=== PATIENT | female | born 1935 | race Caucasian/White ===

== ENCOUNTER 2017-03-01 14:29 | Emergency (ER) | payer MEDICARE, BC ==
[2017-03-01 14:41] VITALS: BP 113/62
[2017-03-01] MEDS ORDERED: ACETAMINOPHEN 325 MG TABLET PO ONE (15:25)
[2017-03-01] MEDS ORDERED: SILVER SULFADIAZINE 1% CREAM 25 GM TP ONE (15:25)
[2017-03-01] MEDS ORDERED: TRAMADOL HCL 50 MG TABLET PO ONE (15:25)
--- NOTE | 2017-03-01 16:24 | ER Document Report ---
HPI - HPI Patient complains to provider of: hot soup splashed on left hand Onset: Other - 2 hours prior to arrival Onset/Duration: Sudden Quality of pain: Burning Pain Level: 3 Context: 81 yo female was carrying hot soup which splashed from the bowl onto left hand base of fingers to over the MCP's. Put neosporin on it, still dutton. Has ultram and tylenol for pain Exacerbated by: Denies Relieved by: Denies - ROS ROS below otherwise negative: Yes Systems Reviewed and Negative: Yes All other systems reviewed and negative - REPRODUCTIVE Reproductive: DENIES: : - DERM Skin Color: Normal Past Medical History - General Information source: Patient - Social History Smoking Status: Never Smoker Chew tobacco use (# tins/day): No Frequency of alcohol use: None Drug Abuse: None Lives with: Spouse/Significant other Family History: Reviewed & Not Pertinent - Past Medical History Cardiac Medical History: Reports: Hx Hypertension Renal/ Medical History: Denies: Hx Peritoneal Dialysis Musculoskeltal Medical History: Reports Hx Arthritis Psychiatric Medical History: Reports: Hx Depression Past Surgical History: Reports: Hx Hysterectomy - Immunizations Hx Diphtheria, Pertussis, Tetanus Vaccination: No Hx Pneumococcal Vaccination: 04/11/13 Vertical Provider Document - CONSTITUTIONAL Agree With Documented VS: Yes Exam Limitations: No Limitations General Appearance: No Apparent Distress - INFECTION CONTROL TRAVEL OUTSIDE OF THE [place] IN LAST 30 DAYS: No - HEENT HEENT: Normocephalic - NECK Neck: Supple - RESPIRATORY O2 Sat by Pulse Oximetry: 97 - MUSCULOSKELETAL/EXTREMETIES Musculoskeletal/Extremeties: MAEW, FROM, Non-Tender - NEURO Level of Consciousness: Awake, Alert Motor/Sensory: No Motor Deficit, No Sensory Deficit - DERM Notes: she pointed to area that was burned on left hand and there is no erythema, blisters or skin disruption Course - Vital Signs Vital signs: Temp Pulse Resp BP Pulse Ox 98.2 F 76 18 113/62 97 03/01/17 14:39 03/01/17 14:39 03/01/17 14:39 03/01/17 14:39 03/01/17 14:39 Discharge - Discharge Clinical Impression: minimal First degree hand burn Condition: Good Disposition: HOME, SELF-CARE Instructions: Acetaminophen, [place] ([facility]), Sulfa Medications ([facility]), Ultram ([facility]) Additional Instructions: Keep your hand clean with soap and water daily Silvadene cream and dressing this week Return to the emergency room if any signs of infection Please complete the patient satisfaction survey if you get one, and return it.. If you do not receive a survey, then you can go to the [facility] website, [email or web address] and place your comments about your very good care. Thank you very much. It was a pleasure being your medical provider today. Referrals: MARIE WHITE MD [Primary Care Provider] - 03/03/17
== END 2017-03-01 16:48 | disposition home or self-care (01) ==
LOC: ER 14:29
DX: T23.102A Burn of first degree of left hand, unspecified site, initial encounter (principal); X12.XXXA Contact with other hot fluids, initial encounter
CPT/HCPCS: 99283; A9270 ×3

== ENCOUNTER → 2017-06-23 | Outpatient (CLI) | payer MEDICARE, BC ==
--- NOTE | 2017-06-23 11:05 | RADIOLOGY REPORT (SQ) ---
EXAM DESCRIPTION: CHEST PA/LATERAL COMPLETED DATE/TIME: 06/23/2017 9:55 am REASON FOR STUDY: OTHER ABNORMALITIES OF BREATHING,DYSPNEA, UNSPECIF COMPARISON: 11/12/2013 EXAM PARAMETERS: NUMBER OF VIEWS: two views TECHNIQUE: Digital Frontal and Lateral radiographic views of the chest acquired. RADIATION DOSE: NA LIMITATIONS: none FINDINGS: LUNGS AND PLEURA: No opacities, masses or pneumothorax. No pleural effusion. MEDIASTINUM AND HILAR STRUCTURES: No masses or contour abnormalities. HEART AND VASCULAR STRUCTURES: Heart normal size. No evidence for failure. BONES: No acute findings. HARDWARE: None in the chest. OTHER: No other significant finding. IMPRESSION: NO SIGNIFICANT RADIOGRAPHIC FINDING IN THE CHEST. TECHNICAL DOCUMENTATION: JOB ID: [id number] [employer]- All Rights Reserved
== END ==
LOC: OD 09:29
PROVIDERS: ATTEND Internal Medicine Pulmonary Disease
DX: R06.00 Dyspnea, unspecified (principal); R06.89 Other abnormalities of breathing
CPT/HCPCS: 71046

== ENCOUNTER → 2018-04-01 | Outpatient (CLI) | payer MEDICARE, BC ==
[2018-04-01 09:32] LABS: ABSOLUTE BASOPHILS # (AUTO) 0.1 10^3/uL (0.0-0.2); ABSOLUTE EOSINOPHILS # (AUTO) 0.1 10^3/uL (0.0-0.6); ABSOLUTE LYMPHOCYTES (AUTO) 1.5 10^3/uL (0.5-4.7); ABSOLUTE MONOCYTES (AUTO) 0.3 10^3/uL (0.1-1.4); ABSOLUTE NEUT (AUTO) 3.9 10^3/uL (1.7-8.2); BASOPHILS % (AUTO) 1.3 % (0-2); EOSINOPHILS % (AUTO) 2.3 % (0-6); HEMATOCRIT 37.3 % (36.0-47.0); HEMOGLOBIN 12.6 g/dL (12.0-15.5); LYMPHOCYTES % (AUTO) 25.4 % (13-45); MEAN CORPUSCULAR HEMOGLOBIN 30.8 pg (27.0-33.4); MEAN CORPUSCULAR HGB CONC 33.8 g/dL (32.0-36.0); MEAN CORPUSCULAR VOLUME 91 fl (80-97); MONOCYTES % (AUTO) 4.9 % (3-13); PLATELET COUNT 304 10^3/uL (150-450); RED CELL DISTRIBUTION WIDTH 13.5 % (11.5-14.0); SEGMENTED NEUTROPHILS % (AUTO) 66.1 % (42-78); TOTAL CELLS COUNTED % (AUTO) 100 %; WHITE BLOOD COUNT 5.9 10^3/uL (4.0-10.5)
[2018-04-01 09:56] LABS: ALANINE AMINOTRANSFERASE 18 U/L (9-52); ALBUMIN 4.3 g/dL (3.5-5.0); ALKALINE PHOSPHATASE 69 U/L (38-126); ANION GAP 9 (5-19); ASPARTATE AMINO TRANSFERASE 19 U/L (14-36); BILIRUBIN,DIRECT 0.2 mg/dL (0.0-0.4); BILIRUBIN,TOTAL 0.3 mg/dL (0.2-1.3); BLOOD UREA NITROGEN 44 mg/dL (7-20); CALCIUM 9.4 mg/dL (8.4-10.2); CARBON DIOXIDE 26 mmol/L (22-30); CHLORIDE 108 mmol/L (98-107); GLUCOSE 98 mg/dL (75-110); POTASSIUM 4.4 mmol/L (3.6-5.0); SODIUM 142.9 mmol/L (137-145); TOTAL PROTEIN 7.5 g/dL (6.3-8.2)
== END ==
LOC: LAB 08:55
PROVIDERS: ATTEND Internal Medicine Cardiovascular Disease
DX: I25.119 Atherosclerotic heart disease of native coronary artery with unspecified angina pectoris (principal)
CPT/HCPCS: 36415; 80053; 85025

== ENCOUNTER 2018-05-14 06:23 | Observation (INO) | payer MEDICARE, BC ==
--- NOTE | 2018-05-14 06:53 | RADIOLOGY REPORT (SQ) ---
EXAM DESCRIPTION: XR CHEST 1 VIEW COMPLETED DATE/TME: 05/14/2018 06:29 CLINICAL HISTORY: 82 years Female, chest pain COMPARISON:06/23/2017 NUMBER OF VIEWS/TECHNIQUE: 1/AP FINDINGS: Adequate lung volume, clear parenchyma, normal cardiac silhouette, and intact bony thorax. IMPRESSION: No acute cardiopulmonary findings.
[2018-05-14 07:00] LABS: ABSOLUTE BASOPHILS # (AUTO) 0.1 10^3/uL (0.0-0.2); ABSOLUTE EOSINOPHILS # (AUTO) 0.1 10^3/uL (0.0-0.6); ABSOLUTE LYMPHOCYTES (AUTO) 1.3 10^3/uL (0.5-4.7); ABSOLUTE MONOCYTES (AUTO) 0.3 10^3/uL (0.1-1.4); ABSOLUTE NEUT (AUTO) 2.9 10^3/uL (1.7-8.2); BASOPHILS % (AUTO) 1.1 % (0-2); EOSINOPHILS % (AUTO) 2.3 % (0-6); HEMOGLOBIN 11.7 g/dL (12.0-15.5); LYMPHOCYTES % (AUTO) 28.3 % (13-45); MEAN CORPUSCULAR HEMOGLOBIN 30.5 pg (27.0-33.4); MEAN CORPUSCULAR HGB CONC 33.4 g/dL (32.0-36.0); MEAN CORPUSCULAR VOLUME 91 fl (80-97); MONOCYTES % (AUTO) 6.2 % (3-13); PLATELET COUNT 285 10^3/uL (150-450); RED BLOOD COUNT 3.83 10^6/uL (3.72-5.28); RED CELL DISTRIBUTION WIDTH 13.7 % (11.5-14.0); SEGMENTED NEUTROPHILS % (AUTO) 62.1 % (42-78); TOTAL CELLS COUNTED % (AUTO) 100 %; WHITE BLOOD COUNT 4.7 10^3/uL (4.0-10.5)
[2018-05-14] MEDS ORDERED: ASPIRIN 81 MG TABLET, CHEWABLE PO ONE (07:14)
--- NOTE | 2018-05-14 07:15 | ER Document Report ---
ED General - General Chief Complaint: Chest Pressure Stated Complaint: CHEST PAIN Time Seen by Provider: 05/14/18 06:29 Notes: Patient is a 82-year-old female with CAD that presents to the emergency department for chief complaint of chest pain. The patient reports that the pain started around 3 or 4 AM this morning and is subsiding. The currently rate the pain as 2 out of 10, and described as tightness and pressure that is substernal. Denies any other associated symptoms. Denies any shortness of breath, diaphoresis, nausea or vomiting. Their risk factors for heart disease include CAD and prior stenting, hypertension, hyperlipidemia. She was given nitroglycerin spray by EMS which did seem to alleviate her chest pain. She reports having recent heart cath in January 2018, is currently taking aspirin and Brilinta, denies missing any doses. Past Medical History: CAD, hypertension, hyperlipidemia Past Surgical History: PCI with stenting Social History: Denies tobacco, alcohol or drug use. Family History: Reviewed and noncontributory for presenting illness Allergies: Reviewed, see documented allergy list. REVIEW OF SYSTEMS: Other than noted above, the 12 point review of systems was reviewed with the patient and were negative, all pertinent findings are included in the HPI. PHYSICAL EXAMINATION: Vital signs reviewed, nursing noted reviewed. GENERAL: Elderly, well-appearing, well-nourished and in no acute distress. HEAD: Atraumatic, normocephalic. EYES: Eyes appear normal, extraocular movements intact, sclera anicteric, conjunctiva are normal. ENT: nares patent, oropharynx clear without exudates. Moist mucous membranes. NECK: Normal range of motion, supple without lymphadenopathy LUNGS: Breath sounds clear to auscultation bilaterally and equal. No wheezes rales or rhonchi. HEART: Regular rate and rhythm without murmurs ABDOMEN: Soft, nontender, normoactive bowel sounds. No rebound, guarding, or rigidity. No masses appreciated. EXTREMITIES: Nontender, good range of motion, no pitting or edema. NEUROLOGICAL: No focal neurological deficits. Moves all extremities spontaneously Motor and sensory grossly intact on exam. PSYCH: Normal mood, normal affect. SKIN: Warm, Dry, normal turgor, no rashes or lesions noted on exposed skin TRAVEL OUTSIDE OF THE [place] IN LAST 30 DAYS: No - Related Data Allergies/Adverse Reactions: prochlorperazine edisylate [From Compazine] Allergy (Severe, Verified 05/14/18 09:01) facial spasms prochlorperazine maleate [From Compazine] Allergy (Severe, Verified 05/14/18 09:01) facial spasms codeine [Codeine] Allergy (Intermediate, Verified 05/14/18 09:01) blistering rash levofloxacin [From Levaquin] Allergy (Intermediate, Verified 05/14/18 09:01) n/v I&H Allergy (Mild, Uncoded 05/14/18 09:01) rash meclomin Allergy (Mild, Uncoded 05/14/18 09:01) Diarrhea Past Medical History - Social History Smoking Status: Never Smoker Frequency of alcohol use: None Drug Abuse: None Family History: Reviewed & Not Pertinent Patient has suicidal ideation: No Patient has homicidal ideation: No - Past Medical History Cardiac Medical History: Reports: Hx Hypertension Denies: Hx Coronary Artery Disease, Hx Heart Attack Pulmonary Medical History: Denies: Hx Asthma, Hx Bronchitis, Hx COPD, Hx Pneumonia Neurological Medical History: Denies: Hx Cerebrovascular Accident, Hx Seizures Renal/ Medical History: Denies: Hx Peritoneal Dialysis GI Medical History: Denies: Hx Hepatitis, Hx Hiatal Hernia, Hx Ulcer Musculoskeletal Medical History: Reports Hx Arthritis Psychiatric Medical History: Reports: Hx Depression Infectious Medical History: Denies: Hx Hepatitis Past Surgical History: Reports: Hx Cardiac Surgery - x2 stent 12/27, Hx Hysterectomy. Denies: Hx Mastectomy, Hx Open Heart Surgery, Hx Pacemaker - Immunizations Hx Diphtheria, Pertussis, Tetanus Vaccination: No Hx Pneumococcal Vaccination: 04/11/13 Physical Exam - Vital signs Vitals: Pulse Ox 98 05/14/18 06:29 Course - Re-evaluation Re-evalutation: Patient seen and examined vital signs reviewed. Laboratory data and imaging were ordered as appropriate for the patient's presenting symptoms and complaint, with consideration of any critical or life threatening conditions that may be associated with their obtained history and exam as noted above. Patient was treated with nitro by EMS which did seem to help her chest pain. Results were reviewed when available and demonstrated negative troponin, with nonischemic EKG, the rest of her blood work was unremarkable The patient was re-evaluated and was stable Evaluation was most consistent with chest pain, nonspecific, possibly related to angina, given patient history, recommended observation for serial troponin testing, discussed this with the hospitalist team, given that the patient was high risk, and her story and her history of CAD with stenting. Results were discussed with the patient at this point after careful con sideration I feel that that patient should be admitted to the hospital. This was discussed with the patient that it is in the best interest for their care to be admitted for further evaluation and management. Patient agreed with this plan of care. A call was placed to the admitted physician, Payton Daniel CNP who graciously accepted the patient onto their service. *Note is created using voice recognition software and may contain spelling, syntax or grammatical errors. Laboratory 05/14/18 05/14/18 05/14/18 06:45 06:45 06:45 WBC 4.7 RBC 3.83 Hgb 11.7 L Hct 35.0 L MCV 91 MCH 30.5 MCHC 33.4 RDW 13.7 Plt Count 285 Seg Neutrophils % 62.1 Lymphocytes % 28.3 Monocytes % 6.2 Eosinophils % 2.3 Basophils % 1.1 Absolute Neutrophils 2.9 Absolute Lymphocytes 1.3 Absolute Monocytes 0.3 Absolute Eosinophils 0.1 Absolute Basophils 0.1 Sodium 138.4 Potassium 4.8 Chloride 108 H Carbon Dioxide 23 Anion Gap 7 BUN 31 H Creatinine 0.82 Est GFR ( Amer) > 60 Est GFR (Non-Af Amer) > 60 Glucose 100 Calcium 8.9 Total Bilirubin 0.4 Direct Bilirubin 0.2 Neonat Total Bilirubin Not Reportable Neonat Direct Bilirubin Not Reportable Neonat Indirect Bili Not Reportable AST 20 ALT 18 Alkaline Phosphatase 60 Troponin I < 0.012 Total Protein 6.4 Albumin 3.5 Chest X-Ray 05/14/18 06:29 IMPRESSION: No acute cardiopulmonary findings. - Vital Signs Vital signs: Temp Pulse Resp BP Pulse Ox 98.3 F 14 102/58 L 98 05/14/18 15:12 05/14/18 14:01 05/14/18 14:57 05/14/18 14:01 - Laboratory Result Diagrams: 05/14/18 06:45 05/14/18 06:45 Laboratory results interpreted by me: 05/14/18 05/14/18 06:45 06:45 Hgb 11.7 L Hct 35.0 L Chloride 108 H BUN 31 H - EKG Interpretation by Me Additional EKG results interpreted by me: EKG demonstrates sinus rhythm with a ventricular rate of 68 bpm, normal axis, normal intervals, no evidence of acute ischemia on this EKG, this is compared with prior EKG from 11/14/2013, without significant change. Discharge - Discharge Clinical Impression: Chest pain Qualifiers: Chest pain type: unspecified Qualified Code(s): R07.9 - Chest pain, unspecified Condition: Stable Disposition: ADMITTED OBSERVATION Admitting Provider: Jose Daniel [facility] Unit Admitted: Telemetry
[2018-05-14 07:28] LABS: ALANINE AMINOTRANSFERASE 18 U/L (9-52); ALBUMIN 3.5 g/dL (3.5-5.0); ALKALINE PHOSPHATASE 60 U/L (38-126); ANION GAP 7 (5-19); ASPARTATE AMINO TRANSFERASE 20 U/L (14-36); BILIRUBIN,DIRECT 0.2 mg/dL (0.0-0.4); BILIRUBIN,TOTAL 0.4 mg/dL (0.2-1.3); BLOOD UREA NITROGEN 31 mg/dL (7-20); CALCIUM 8.9 mg/dL (8.4-10.2); CARBON DIOXIDE 23 mmol/L (22-30); CHLORIDE 108 mmol/L (98-107); GLUCOSE 100 mg/dL (75-110); POTASSIUM 4.8 mmol/L (3.6-5.0); SODIUM 138.4 mmol/L (137-145); TOTAL PROTEIN 6.4 g/dL (6.3-8.2)
[2018-05-14] MEDS ORDERED: TRAMADOL HCL 50 MG TABLET PO PRN (09:12)
[2018-05-14] MEDS ORDERED: NITROGLYCERIN 0.4 MG/TAB 25 TAB/BOTTLE SL PRN (09:13)
[2018-05-14] MEDS ORDERED: MORPHINE SULFATE 10 MG/ML INJ IV PRN (09:13)
[2018-05-14] MEDS ORDERED: ISOSORBIDE MONONITRATE 60 MG TAB.ER.24H PO SCH (10:00)
[2018-05-14] MEDS ORDERED: FAMOTIDINE 20 MG TABLET PO SCH (10:00)
[2018-05-14] MEDS ORDERED: LISINOPRIL 10 MG TABLET PO SCH (10:00)
[2018-05-14] MEDS ORDERED: CLOPIDOGREL BISULFATE 75 MG TABLET PO SCH (10:00)
[2018-05-14] MEDS ORDERED: DOCUSATE SODIUM 100 MG CAPSULE PO SCH (10:00)
[2018-05-14] MEDS ORDERED: METOPROLOL SUCCINATE 25 MG TAB.SR.24H PO SCH (10:00)
[2018-05-14] MEDS ORDERED: ENOXAPARIN SODIUM INJ 80 MG/0.8 ML DISP.SYRIN SUBCUT SCH (10:30)
--- NOTE | 2018-05-14 13:38 | EKG REPORT ---
SEVERITY:- NORMAL ECG - SINUS RHYTHM : Confirmed by: Katja Okeefe MD 14-May-2018 13:36:51
[2018-05-14 14:58] VITALS: BP 98/45
--- NOTE | 2018-05-14 16:25 | H&P/Discharge Summary ---
Discharge Summary Admission Date/PCP: 05/14/18 09:06 MARIE WHITE MD Discharge Date: 05/14/18 Resuscitation Status: Full Code Home Medications: Aspirin [Matthew Chewable Aspirin] 81 mg PO DAILY 05/14/18 Atorvastatin Calcium [Lipitor 20 mg Tablet] 20 mg PO QHS 05/14/18 Clopidogrel Bisulfate [Plavix 75 mg Tablet] 75 mg PO DAILY 05/14/18 Lisinopril/Hydrochlorothiazide [Lisinopril-Hctz 20-12.5 mg Tab] 1 each PO DAILY 05/14/18 Metoprolol Succinate [Toprol Xl 25 mg Tab.sr] 12.5 mg PO DAILY 05/14/18 Ranitidine HCl [Zantac] 300 mg PO QHS 05/14/18 Sennosides/Docusate Sodium [Stool Softener-Laxative Tablet] 1 each PO DAILY 05/14/18 Tramadol HCl [Ultram 50 mg Tablet] 50 mg PO Q12 05/14/18 Allergies/Adverse Reactions: prochlorperazine edisylate [From Compazine] Allergy (Severe, Verified 05/14/18 09:01) facial spasms prochlorperazine maleate [From Compazine] Allergy (Severe, Verified 05/14/18 0 9:01) facial spasms codeine [Codeine] Allergy (Intermediate, Verified 05/14/18 09:01) blistering rash levofloxacin [From Levaquin] Allergy (Intermediate, Verified 05/14/18 09:01) n/v I&H Allergy (Mild, Uncoded 05/14/18 09:01) rash meclomin Allergy (Mild, Uncoded 05/14/18 09:01) Diarrhea Discharge Diet: Diabetic Discharge Activity: Activity As Tolerated, Balance Activity w/Rest History of Present Illness Admission Date/PCP: 05/14/18 09:06 MARIE WHITE MD Patient complains of: chest tightness History of Present Illness: NIMISHA MONSIVAIS is a 82 year old female with a past medical history significant for hypertension, COPD, hyperlipidemia, and recent cardiac catheterization 12/27 and follow-up cath 03/29 with multiple stents who presented to the emergency department today with a complaint of chest tightness, without aggravating, alleviating, or associated symptoms. She reports that she called EMS who provid ed her full strength aspirin and 1 sublingual nitroglycerin tablet which immediately abated her discomfort. The patient reports that her cardiac cath in December 2017 was secondary to abnormal testing revealed during preoperative clearance for right hip orthopedic surgery. She had multiple stents placed at that time; a follow-up cardiac catheterization in March 2018 confirmed patent stents without vessel occlusion. Evaluation in the emergency department revealed baseline anemia (hemoglobin 1 1.7), and unremarkable chemistry with a normal troponin, EKG demonstrating normal sinus rhythm, and a benign chest x-ray. The patient was referred to the hospitalist service for admission and chest pain rule out. Received a call from the patient's nurse this afternoon stating that the patient was requesting to be discharged home. She been observed on cardiac telemetry and has remained in normal sinus rhythm without ST segment or T wave changes. The patient second troponin was negative and she is remained chest pain-free. Her operative reports and [facility] obtained and confirmed the patient's report of recent cardiac catheterization, patency of vessels and recently placed stents. The patient was encouraged to remain for additional observation, however, in sisted that she be allowed to be discharged home as she has had no further episodes of discomfort and is confident in her ability to follow-up with Dr. Livingston within the next few weeks. At time of discharge, the patient is asymptomatic, and in stable condition. She is provided a prescription for nitroglycerin sublingual tabs and educated on appropriate use. She is encouraged to follow-up with her primary care provider within 1 week, to contact Dr. Ovalle's office and to arrange for close follow-up, and to return to the emergency department as necessary for any concerning symptoms. Past Medical History Cardiac Medical History: Reports: Coronary Artery Disease, Hypertension Denies: Myocardial Infarction Pulmonary Medical History: Reports: Chronic Obstructive Pulmonary Disease (COPD) EENT Medical History: Reports: None Neurological Medical History: Denies: Ischemic CVA, Seizures Endocrine Medical History: Reports: None Renal/ Medical History: Reports: None Malignancy Medical History: Reports: None GI Medical History: Denies: Hepatitis, Hiatal Hernia Musculoskeltal Medical History: Reports: Arthritis Skin Medical History: Reports: None Psychiatric Medical History: Reports: Depression Traumatic Medical History: Reports: None Hematology: Denies: Anemia, Sickle Cell Disease Infectious Medical History: Reports: None Past Surgical History Past Surgical History: Reports: Cardiac Catheterization - 12/27, 03/29, Section, Hysterectomy, Other - Bladder sling Denies: Pacemaker Social History Information Source: Patient Lives with: Family Smoking Status: Never Smoker Frequency of Alcohol Use: None Hx Recreational Drug Use: No Hx Prescription Drug Abuse: No - Advance Directive Resuscitation Status: Full Code Surrogate healthcare decision maker:: The patient's , Shaun Monsivais. Family History Family History: Reviewed & Not Pertinent Parental Family History Reviewed: Yes Children Family History Reviewed: Yes Sibling(s) Family History Reviewed.: Yes Review of Systems Constitutional: ABSENT: chills, fever(s), headache(s), weight gain, weight loss Eyes: ABSENT: visual disturbances Ears: ABSENT: hearing changes Cardiovascular: PRESENT: chest pain. ABSENT: dyspnea on exertion, edema, orthropnea, palpitations Respiratory: ABSENT: cough, hemoptysis Gastrointestinal: ABSENT: abdominal pain, constipation, diarrhea, hematemesis, hematochezia, nausea, vomiting Genitourinary: ABSENT: dysuria, hematuria Musculoskeletal: ABSENT: joint swelling Integumentary: ABSENT: rash, wounds Neurological: ABSENT: abnormal gait, abnormal speech, confusion, dizziness, focal weakness, syncope Psychiatric: ABSENT: anxiety, depression, homidical ideation, suicidal ideation Endocrine: ABSENT: cold intolerance, heat intolerance, polydipsia, polyuria Hematologic/Lymphatic: ABSENT: easy bleeding, easy bruising Physical Exam Vital Signs: Temp Pulse Resp BP Pulse Ox 98.3 F 14 102/58 L 98 05/14/18 15:12 05/14/18 14:01 05/14/18 14:57 05/14/18 14:01 Intake & Output 05/13/18 05/14/18 05/15/18 06:59 06:59 06:59 Weight 70 kg General appearance: PRESENT: no acute distress, well-developed, well-nourished Head exam: PRESENT: atraumatic, normocephalic Eye exam: PRESENT: conjunctiva pink, EOMI, PERRLA. ABSENT: scleral icterus Ear exam: PRESENT: normal external ear exam Mouth exam: PRESENT: moist, tongue midline Neck exam: ABSENT: carotid bruit, JVD, lymphadenopathy, thyromegaly Respiratory exam: PRESENT: clear to auscultation yaakov, symmetrical, unlabored. ABSENT: rales, rhonchi, wheezes Cardiovascular exam: PRESENT: RRR, +S1, +S2. ABSENT: diastolic murmur, rubs, systolic murmur Pulses: PRESENT: normal dorsalis pedis pul Vascular exam: PRESENT: normal capillary refill GI/Abdominal exam: PRESENT: normal bowel sounds, soft. ABSENT: distended, guarding, mass, organolmegaly, rebound, tenderness Rectal exam: PRESENT: deferred Extremities exam: PRESENT: full ROM. ABSENT: calf tenderness, clubbing, pedal edema Neurological exam: PRESENT: alert, awake, oriented to person, oriented to place, oriented to time, oriented to situation, CN II-XII grossly intact. ABSENT: motor sensory deficit Psychiatric exam: PRESENT: appropriate affect, normal mood. ABSENT: homicidal ideation, suicidal ideation Skin exam: PRESENT: dry, intact, warm. ABSENT: cyanosis, rash Results Laboratory Results: 05/14/18 06:45 05/14/18 06:45 05/14/18 05/14/18 06:45 06:45 WBC 4.7 RBC 3.83 Hgb 11.7 L Hct 35.0 L MCV 91 MCH 30.5 MCHC 33.4 RDW 13.7 Plt Count 285 Seg Neutrophils % 62.1 Lymphocytes % 28.3 Monocytes % 6.2 Eosinophils % 2.3 Basophils % 1.1 Absolute Neutrophils 2.9 Absolute Lymphocytes 1.3 Absolute Monocytes 0.3 Absolute Eosinophils 0.1 Absolute Basophils 0.1 Sodium 138.4 Potassium 4.8 Chloride 108 H Carbon Dioxide 23 Anion Gap 7 BUN 31 H Creatinine 0.82 Est GFR ( Amer) > 60 Est GFR (Non-Af Amer) > 60 Glucose 100 Calcium 8.9 Total Bilirubin 0.4 AST 20 ALT 18 Alkaline Phosphatase 60 Total Protein 6.4 Albumin 3.5 05/14/18 05/14/18 06:45 11:27 Troponin I < 0.012 < 0.012 Impressions: Chest X-Ray 05/14/18 06:29 IMPRESSION: No acute cardiopulmonary findings. Qualifiers - * PATIENT BEING DISCHARGED WITH ANY OF THE FOLLOWING DIAGNOSIS: No Assessment & Plan - Time Time Spent: 50 to 70 Minutes Medications reviewed and adjusted accordingly: Yes Anticipated dischagre: Home Within: within 24 hours - Plan Summary Plan Summary: Discharge to home with self care. Follow up with primary care provider within 1 week. Contact ticketer, Dr. Jessep, and follow up as directed. Recommend f/u no later than 4 weeks. Return to the emergency department as needed for concerning symptoms.
[2018-05-14] MEDS ORDERED: ATORVASTATIN CALCIUM 20 MG TABLET PO SCH (22:00)
[2018-05-15] MEDS ORDERED: ASPIRIN 81 MG TABLET, CHEWABLE PO SCH (10:00)
== END 2018-05-14 15:26 | disposition home or self-care (01) ==
LOC: ER 06:23 → UNDOADMOB 08:17 → EH 08:17 → INTOOBSV 08:17 → EH 09:06
PROVIDERS: ADMIT Hospitalist; ATTEND Hospitalist
DX: R07.89 Other chest pain (principal); I10 Essential (primary) hypertension; J44.9 Chronic obstructive pulmonary disease, unspecified; I25.10 Atherosclerotic heart disease of native coronary artery without angina pectoris; D64.9 Anemia, unspecified; E78.5 Hyperlipidemia, unspecified; Z79.82 Long term (current) use of aspirin; Z79.02 Long term (current) use of antithrombotics/antiplatelets; Z79.899 Other long term (current) drug therapy; Z95.5 Presence of coronary angioplasty implant and graft; Z98.890 Other specified postprocedural states
CPT/HCPCS: 93005; 99285; 36415; 85025; 80053; 84484; 71045; 93010; G0378; A9270 ×6; J1650

== ENCOUNTER → 2018-06-17 | Day surgery (SDC) | payer MEDICARE, BC ==
--- NOTE | 2018-06-17 09:41 | RADIOLOGY REPORT (SQ) ---
EXAM DESCRIPTION: CT RT UPPER EXTREMITY WITH COMPLETED DATE/TIME: 06/17/2018 9:21 am REASON FOR STUDY: PAIN IN RIGHT SHOULDER (M25.511) M25.511 PAIN IN RIGHT SHOULDER COMPARISON: None. TECHNIQUE: [facility] with reformatted oblique coronal and ob lique sagittal imaging windowed for bone and soft tissues. All CT scanners at this facility use dose modulation, iterative reconstruction, and/or weight based d osing when appropriate to reduce radiation dose to as low as reasonably achievable (ALARA). [facility]: Dose Right [facility]: CareDose [facility]: Dose Right [facility]: Teradose 4D [facility]: [employer] RADIATION DOSE: CT Rad equipment meets quality standard of care and radiation dose reduction techniq ues were employed. CTDIvol: 7.5 mGy. DLP: 189 mGy-cm. mGy. LIMITATIONS: None. FINDINGS: SOFT TISSUES: No masses or adenopathy BONY ARCHITECTURE: No fracture. Normal bone density for age. No lytic or blastic lesions GLENOHUMERAL JOINT: Normal alignment. Mild chondromalacia without bulky bony spurring ACROMION AND AC JOINT: Type 2 acromion with bulky AC joint hypertrophy. There is leakage of contrast from the subacromial/subdeltoid bursa into the AC joint itself, best shown on sagittal reconstructio n images 38-41. Narrowing of the subacromial space from bony spurring along the distal clavicle. ROTATOR CUFF: Full-thickness tear anterior half of the infraspinatus tendon, and throughout the dista l supraspinatus tendon. There is leakage of contrast into the subacromial/ subdeltoid bursa and subc oracoid recess. Fatty atrophy of the supraspinatus muscle GLENOID, LABRUM AND BICEPS: Intra-articular long head biceps tendon is visualized. Question tiny sup erior labral tear without paralabral cyst. Remainder of the labrum is grossly intact. No bony gleno id fracture OTHER: No other significant finding. IMPRESSION: Diffuse internal derangement as above TECHNICAL DOCUMENTATION: JOB ID: [id number] Quality ID # [id number]: Final reports with documentation of one or more dose reduction techniques (e.g., Au tomated exposure control, adjustment of the mA and/or kV according to patient size, use of iterative reconstruction technique) 2010 [employer]- All Rights Reserved Reading location - IP/workstation name: [email or web address]
--- NOTE | 2018-06-17 09:42 | RADIOLOGY REPORT (SQ) ---
EXAM DESCRIPTION: ARTHRO SHOULDER INJECTION; FLUORO/NEEDLE PLACEMENT COMPLETED DATE/TIME: 06/17/2018 9:16 am REASON FOR STUDY: PAIN IN RIGHT SHOULDER (M25.511) M25.511 PAIN IN RIGHT SHOULDER COMPARISON: None. FLUOROSCOPY TIME: 3 seconds 1 digital fluoroscopic images saved to PACS. LIMITATIONS: None. PROCEDURE: Procedure, risks, benefits and alternatives explained to patient who then gave written co nsent. The right shoulder was marked and a time out was called for correct procedure verification. P osterior entry site marked using fluoroscopic guidance. Shoulder prepped and draped using sterile te chnique. Local anesthesia achieved using 1% lidocaine injection. Hypodermic needle introduced into the joint space under direct fluoroscopic visualization. Non-ionic contrast instilled to confirm intr a-articular position. Dilute gadolinium solution then injected. Needle removed and entry site covere d with sterile bandage. No immediate complications noted. TECHNIQUE: Digital images acquired during fluoroscopy and stored on PACS. Patient immediately take n to the MR suite for additional imaging. INJECTION LOCATION: Posterior right glenohumeral joint CONTRAST TYPE AND AMOUNT: 1 mL of Omnipaque 300 was injected to confirm intra-articular needle placem ent followed by 10 mL of dilute Omnipaque for CT shoulder arthrogram IMPRESSION: SUCCESSFUL NEEDLE PLACEMENT AND INJECTION FOR RIGHT SHOULDER MR ARTHROGRAM USING POSTERI OR APPROACH. COMMENT: Quality ID [id number]: Final reports for procedures using fluoroscopy that document radiation exp osure indices, or exposure time and number of fluorographic images (if radiation exposure indices are not available) TECHNICAL DOCUMENTATION: JOB ID: [id number] [employer]- All Rights Reserved Reading location - IP/workstation name: [email or web address]
== END ==
LOC: RAD 08:19
PROVIDERS: ATTEND Orthopaedic Surgery
DX: M25.511 Pain in right shoulder (principal)
CPT/HCPCS: 23350; 77002

== ENCOUNTER → 2019-05-26 | Outpatient (CLI) | payer MEDICARE, BC ==
--- NOTE | 2019-05-26 12:41 | RADIOLOGY REPORT (SQ) ---
EXAM DESCRIPTION: CT CHEST WITHOUT COMPLETED DATE/TIME: 05/26/2019 8:51 am REASON FOR STUDY: R94.2 ABNORMAL RESULTS OF PULMONARY FUNCTION STUDIES R94.2 ABNORMAL RESULTS OF PU LMONARY FUNCTION STUDIES COMPARISON: 11/14/2013 TECHNIQUE: CT scan performed of the chest without intravenous contrast. Images reviewed with lung, soft tissue and bone windows. Reconstructed coronal and sagittal MPR images reviewed. All images st ored on PACS. All CT scanners at this facility use dose modulation, iterative reconstruction, and/or weight based d osing when appropriate to reduce radiation dose to as low as reasonably achievable (ALARA). [facility]: Dose Right [facility]: CareDose [facility]: Dose Right [facility]: Teradose 4D [facility]: [employer] RADIATION DOSE: CT Rad equipment meets quality standard of care and radiation dose reduction techniq ues were employed. CTDIvol: 9.4 mGy. DLP: 337 mGy-cm. mGy. LIMITATIONS: No technical limitations. FINDINGS: LUNGS AND PLEURA: Subsegmental bronchiectasis medial right lower lobe. No suspicious nodu les. No consolidation or effusions. HILAR AND MEDIASTINAL STRUCTURES: No identified masses or abnormal nodes. No obvious aneurysm. HEART AND VASCULAR STRUCTURES: No aneurysm. No pericardial effusion. UPPER ABDOMEN: No significant findings. Limited exam. THYROID AND OTHER SOFT TISSUES: No masses. No adenopathy. BONES: No significant finding. HARDWARE: None in the chest. OTHER: No other significant findings. IMPRESSION: Mild bronchiectasis. No consolidation or fibrosis. TECHNICAL DOCUMENTATION: JOB ID: [id number] Quality ID # [id number]: Final reports with documentation of one or more dose reduction techniques (e.g., Au tomated exposure control, adjustment of the mA and/or kV according to patient size, use of iterative reconstruction technique) 2010 [employer]- All Rights Reserved Reading location - IP/workstation name: [email or web address]
== END ==
LOC: RAD 08:19
PROVIDERS: ATTEND Internal Medicine Pulmonary Disease
DX: R94.2 Abnormal results of pulmonary function studies (principal)
CPT/HCPCS: 71250

== ENCOUNTER → 2020-05-26 | Outpatient (CLI) | payer MEDICARE, BC ==
--- NOTE | 2020-05-26 13:47 | RADIOLOGY REPORT (SQ) ---
EXAM DESCRIPTION: CT CHEST WITHOUT IMAGES COMPLETED DATE/TIME: 05/26/2020 1:03 pm REASON FOR STUDY: (J47.9)BRONCHIECTASIS, UNCOMPLICATED J47.9 BRONCHIECTASIS, UNCOMPLICATED COMPARISON: 05/26/2019 TECHNIQUE: CT scan performed of the chest without intravenous contrast. Images reviewed with lung, soft tissue and bone windows. Reconstructed coronal and sagittal MPR images reviewed. All images st ored on PACS. All CT scanners at this facility use dose modulation, iterative reconstruction, and/or weight based d osing when appropriate to reduce radiation dose to as low as reasonably achievable (ALARA). [facility]: Dose Right [facility]: CareDose [facility]: Dose Right [facility]: Teradose 4D [facility]: Smart [employer] RADIATION DOSE: CT Rad equipment meets quality standard of care and radiation dose reduction techniq ues were employed. CTDIvol: 7.2 mGy. DLP: 252 mGy-cm. mGy. LIMITATIONS: None. FINDINGS: LUNGS AND PLEURA: No dense consolidation, pleural effusion or pneumothorax. Mild mosaic a ttenuation and scattered areas of interlobular thickening. Mild bronchial wall thickening the lung b ases. Stable left lower lobe 4 mm nodule (series 4, image 32). No other suspicious nodules or yesy s. HILAR AND MEDIASTINAL STRUCTURES: Shotty mediastinal nodes without discrete adenopathy. No discrete hilar adenopathy. HEART AND VASCULAR STRUCTURES: Scattered three-vessel coronary atherosclerosis with likely prior donna nary stents. No pericardial effusion. Normal heart size. UPPER ABDOMEN: No acute findings. Inferior right hepatic lobe cyst. THYROID AND OTHER SOFT TISSUES: No masses. No adenopathy. BONES: No acute bony abnormality. No suspicious lytic or blastic osseous lesions. HARDWARE: None in the chest. OTHER: No other significant findings. IMPRESSION: 1. No evidence of acute cardiopulmonary process. 2. Stable nonspecific chronic interstitial changes as above. 3. Coronary atherosclerosis. TECHNICAL DOCUMENTATION: JOB ID: [id number] Quality ID # [id number]: Final reports with documentation of one or more dose reduction techniques (e.g., Au tomated exposure control, adjustment of the mA and/or kV according to patient size, use of iterative reconstruction technique) 2010 [employer]- All Rights Reserved Reading location - IP/workstation name: [email or web address]
== END ==
LOC: RAD 12:41
PROVIDERS: ATTEND Internal Medicine Pulmonary Disease
DX: J47.9 Bronchiectasis, uncomplicated (principal); I25.10 Atherosclerotic heart disease of native coronary artery without angina pectoris
CPT/HCPCS: 71250